=== PATIENT | female | born 1970 | race Two or more races ===

== ENCOUNTER 2024-04-07 11:16 | Emergency (ER) | payer MEDICARE, SELFPAY ==
[2024-04-07 11:19] VITALS: BMI 23.0
--- NOTE | 2024-04-07 11:22 | EKG_ITS ---
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
[2024-04-07 11:52] VITALS: BP 122/57; PULSE 81; RESP 18; TEMP 37; O2SAT 96
--- NOTE | 2024-04-07 11:58 | XR_ITS ---
Examination: PA lateral chest 2 views TECHNIQUE: Upright PA lateral chest 2 views Exam date and time: April 07, 2024 1217 hours INDICATIONS: Onset chest pain today. FINDINGS: Normal heart size The lungs are clear. The osseous structures are intact IMPRESSION: No active disease
--- NOTE | 2024-04-07 11:58 | EDRME_ITS ---
Rapid Medical Screening Exam PENDING SALE TO [facility] Arrival date/time: 04/07/24 11:16 53-year-old female presents to the emergency department with complaints of upper mid chest pain x 2 days. Does report pain is a burning sensation in the chest. I have greeted and performed a focused initial assessment of this patient. Initial appropriate labs ordered at this time. A comprehensive ED assessment and evaluation of the patient and analysis of all test and completion of medical decision making process will be conducted by additional ED provider. Chief Complaint: Chest Pain Time Seen by Provider: 04/07/24 11:56 Vital signs: Vital Signs Temperature 98.6 F 04/07/24 11:52 Pulse Rate 81 04/07/24 11:52 Respiratory Rate 18 04/07/24 11:52 Blood Pressure 122/57 L 04/07/24 11:52 Pulse Oximetry (%) 96 04/07/24 11:52 Oxygen Delivery Method Room Air 04/07/24 11:52
--- NOTE | 2024-04-07 11:58 | XR_ITS ---
Examination: Abdomen sonogram, Limited Date and time of exam: April 07, 2024 at 1225 hours INDICATIONS: Chest pain beginning 5 days ago Technique: Real-time martinez scale transabdominal sonographic images of the upper abdomen obtained. Findings: Normal gallbladder Normal common bile duct 0.3 cm Pancreatic head 1.7 cm Liver 12.9 cm fatty infiltration smooth contour no focal liver lesions Normal hepatopedal portal venous flow Patent IVC Technologist identifies internal echoes in the right ventricle, clinical correlation advised IMPRESSION: Normal gallbladder Technologist identifies internal echoes in the right ventricle, clinical correlation advised, consider echocardiography follow-up
[2024-04-07 13:03] LABS: Basophils # (Auto) 0.1 Thou/mm3 (0.0-0.2); Basophils % (Auto) 1 % (0-2.5); Eosinophils # (Auto) 0.1 Thou/mm3 (0.0-0.5); Eosinophils % (Auto) 1 % (0-10); Hematocrit 34.2 % (36.0-46.0); Hemoglobin 11.4 g/dL (12.0-16.0); Immature Granulocytes % (Auto) 0 % (0-0); Immature Granulocytes Auto 0.01 Thou/mm3 (0.00-0.00); Lymphocytes # (Auto) 2.8 Thou/mm3 (1.0-4.8); Lymphocytes % (Auto) 32 % (10-50); Mean Corpuscular HGB Conc 33.3 g/dl (31.0-37.0); Mean Corpuscular Hemoglobin 30.2 pg (25.0-35.0); Mean Corpuscular Volume 91 fL (80-100); Monocytes # (Auto) 0.6 Thou/mm3 (0.0-0.8); Monocytes % (Auto) 7 % (0-12); Neutrophils # (Auto) 5.1 Thou/mm3 (1.8-7.7); Neutrophils % (Auto) 59 % (37-80); Nucleated Red Blood Cell % 0 /100 WBC (0); Platelet Count 282 Thou/mm3 (140-440); RDW Standard Deviation 42.7 fL (36.4-46.3); Red Blood Count 3.77 Miln/mm3 (4.00-5.20); White Blood Count 8.6 Thou/mm3 (3.6-11.0)
[2024-04-07] MEDS: MG HYD/AL HYD/SIME (Maalox Reg) SUSP 30 ML UDC PO (13:13)
[2024-04-07] MEDS: LIDOCAINE VISCOUS 2% 15 ML UDC PO (13:14)
[2024-04-07 13:18] LABS: Prothrombin Time 10.5 Seconds (9.0-12.2)
[2024-04-07 13:21] LABS: B-Type Natriuretic Peptide 80 pg/mL (0-100)
[2024-04-07 13:23] LABS: Alanine Aminotransferase 19 U/L (10-49); Albumin, Serum 4.3 gm/dL (3.5-5.0); Albumin/Globulin Ratio 1.4 (1.2-2.2); Alkaline Phosphatase 76 U/L (46-116); Anion Gap 7 (7-16); Aspartate Amino Transferase 24 U/L (0-34); BUN/Creatinine Ratio 15 Ratio (12-20); Bilirubin,Total 0.4 mg/dL (0.3-1.2); Blood Urea Nitrogen 12 mg/dL (9-23); Calcium 9.8 mg/dL (8.3-10.6); Calcium (Corrected) 9.8 mg/dL (8.5-10.1); Carbon Dioxide 31.4 mMol/L (20.0-31.0); Chloride 101 mMol/L (98-107); Creatinine (Component) 0.8 mg/dL (0.6-1.3); Estimated Creatinine Clearance 68.8 mL/min (>60); Glucose 100 mg/dL (74-106); Lipase 36 U/L (12-53); Magnesium 1.8 mg/dL (1.6-2.6); Osmolality,Calculated 277 (275-295); Sodium 139 mMol/L (136-145); Total Protein 7.3 gm/dL (5.7-8.2); Troponin I < 0.002 ng/mL (0.0-0.045); eGFR > 60 See Note
[2024-04-07 14:40] VITALS: BP 131/86; PULSE 70; RESP 18; TEMP 37; O2SAT 98
[2024-04-07 18:40] VITALS: BP 123/66; PULSE 70; RESP 18; TEMP 36.8; O2SAT 99
--- NOTE | 2024-04-07 18:56 | XR_ITS ---
Examination: CTA chest with intravenous contrast 2-D reconstructions 3-D reconstructions, vascular Date and time of exam: April 2101 hrs. Indications: Onset chest pain shortness of breath beginning 6 days ago CTDI: vol (mGy) 6.34 DLP: (mGycm) 261 Technique: Multiple axial sections of the thorax have been obtained. 3 mm slice thickness, from below the hemidiaphragms to above the apices of the lungs. Mediastinal and lung density settings have been obtained. 2-D sagittal and coronal reconstructions. 3-D angiographic renderings, 3-D volume renderings, 3D post processing, vascular maximum intensity projections obtained. Contrast administered is 100 cc Isovue-370. Low dose protocols were performed. One or more of the following dose reduction techniques were used; automated exposure control, adjustment of the mA and/or KV according to patient size, use of iterative reconstruction technique. Findings: No thoracic aortic aneurysm dilatation or dissection Pulmonary artery segments are not enlarged. No pulmonary artery emboli No pneumonia or pulmonary edema or pleural disease Fatty infiltration throughout the liver with small liver cysts No definite gallstones Spleen not enlarged No pancreatic mass Kidneys partially visualized no hydronephrosis Abdominal aorta normal size Impression: No thoracic aortic aneurysm dilatation Negative for pulmonary artery emboli No mediastinal lymphadenopathy No pneumonia, pulmonary edema or pleural disease
--- NOTE | 2024-04-07 18:57 | EDNOTE_ITS ---
ED Chest Pain RME/HPI General Chief Complaint: Chest Pain Stated Complaint: CHEST PAIN SINCE WEDNESDAY Time Seen by Provider: 04/07/24 11:56 Arrival date/time: 04/07/24 11:16 RME / HPI RME / HPI narrative: 53-year-old female patient, came in for evaluation regarding substernal chest pain. Has been having 2 days of substernal chest pain, described as burning sensation, severity moderate. Patient denies any shortness of breath denies any diaphoresis denies any cyanosis. Denies any cough also. Denies any fever. No medication was taken prior to arrival. Related Data Previous Rx's ?Medication ?Instructions ?Recorded pantoprazole 40 mg tablet,delayed 40 mg PO QAM #20 tab s 04/07/24 release (Protonix) Allergies Allergy/AdvReac Type Severity Reaction Status Date / Time No Known Allergies Allergy Verified 04/07/24 11:18 Review of Systems Review of Systems Narrative Review of Systems: Review of system reviewed and within normal limits except mentioned in HPI ED Exam Narrative Physical exam: VITAL SIGNS: Reviewed. GENERAL APPEARANCE: Alert and interactive, follows commands, no acute distress, HEAD AND FACE: Non-traumatic. ENT: PERRL, pink conjunctivitis, eyelid no trauma, Mucous membrane moist. NECK: Supple, nontender, no nuchal rigidity. CHEST: No tenderness, no crepitus, no paradoxical movement, no retractions. LUNGS: Clear, well ventilated, symmetric, no rales, no wheezing, no ronchi, no stridor, good breath sounds bilaterally. HEART: Regular rate, regular rhythm, no murmur, no gallops. ABDOMEN: Soft, positive bowel sounds, nondistended, no guarding, nontender, no rebound, no masses, RECTAL: Deferred. GENITAL: Deferred. NEUROLOGICAL: Gross motor function intact sensory function intact, Appropriate for age. MUSCULOSKELETAL: low back nontender, full range of motion. EXTREMITIES: Nontender, full range of motion. SKIN: Color pink, dry, no rash, no lacerations, no abrasions, no contusions. LYMPHATICS: Deferred. Course Quality Measures none Orders Category Date Time Status CT Screening NOW Care 04/07/24 18:56 Active EKG (ED ONLY) *Do not use* NOW Care 04/07/24 11:22 Completed Insert IV NOW Care 04/07/24 19:[address] angio chest Stat Exams 04/07/24 18:56 Completed EKG (ED Only) Stat Exams 04/07/24 11:22 Draft US gall bladder Stat Exams 04/07/24 11:58 Completed XR chest 2V Stat Exams 04/07/24 11:58 Completed B-Type Natriuretic Peptide Stat Lab 04/07/24 12:45 Completed CBC Stat Lab 04/07/24 12:45 Completed Comprehensive Metabolic Panel Stat Lab 04/07/24 12:45 Completed Lipase Stat Lab 04/07/24 12:45 Completed Magnesium Stat Lab 04/07/24 12:45 Completed Prothrombin Time with INR Stat Lab 04/07/24 12:45 Completed Troponin I Stat Lab 04/07/24 12:45 Completed Famotidine Inj [Pepcid Inj] Med 04/07/24 18:56 Discontinued 20 mg IVP X1 ONE Lidocaine 2% Viscous [Xylocaine 2% Viscous] Med 04/07/24 11:58 Discontinued 15 ml PO X1 ONE mg Hyd/Al Hyd/Sierra Susp [Maalox Susp] Med 04/07/24 11:58 Discontinued 30 ml PO X1 ONE Vital Signs Vital signs: Vital Signs Temperature 98.6 F 04/07/24 11:52 Pulse Rate 81 04/07/24 11:52 Respiratory Rate 18 04/07/24 11:52 Blood Pressure 122/57 L 04/07/24 11:52 Pulse Oximetry (%) 96 04/07/24 11:52 Oxygen Delivery Method Room Air 04/07/24 11:52 Chest Pain MDM Narrative MDM Narrative:: 53-year-old female patient, came in for evaluation regarding substernal chest pain. Has been having 2 days of substernal chest pain, described as burning sensation, severity moderate. Patient denies any shortness of breath denies any diaphoresis denies any cyanosis. Denies any cough also. Denies any fever. No medication was taken prior to arrival. Patient's cardiac workup today came back unremarkable troponin is normal. EKG showed sinus rhythm, ventricular rate of 70 bpm, no ST segment elevation depression noted. Ultrasound of the gallbladder showed no acute pathology however there is possible debris noted on the right ventricle. I did CT a ngiogram of the chest and it came back unremarkable. Results discussed with the patient. Patient appears nontoxic and hemodynamically stable. Patient discharged home and instructed to follow-up with primary care provider in 24 to 48 hours. Instructed to return to the emergency department immediately if worsening of symptoms Patient data External records reviewed:: None Clinical information provided by:: none Social determinants that could affect healthcare access:: none Patient has the following chronic illnesses:: None How is presenting disease/condition affected by chronic disease/condition?: no chronic disease Evaluation data The following diagnostics were reviewed and interpreted by me:: lab results, radiology exam(s) and EKG tracing(s) Lab and/or radiology exams considered but not ordered:: None Interpretation Summary: See results in MDM Medications / Prescriptions Medications or Prescriptions considered but not ordered:: None Medication administrations:: Medication Administration History Discontinued Medications Al Hydrox/Mg Hydrox/Simethicone (Mg Hyd/Al Hyd/Sierra (Maalox Reg) Susp 30 Ml Udc) 30 ml PO X1 ONE Stop: 04/07/24 11:59 Last Admin: 04/07/24 13:13 Dose: 30 ml Documented By: DUGLAS Famotidine (Famotidine Inj 10 Mg/Ml Vial 2 Ml) 20 mg IVP X1 ONE Stop: 04/07/24 18:57 Last Admin: 04/07/24 19:33 Dose: 20 mg Documented By: MP Lidocaine HCl (Lidocaine Viscous 2% 15 Ml Udc) 15 ml PO X1 ONE Stop: 04/07/24 11:59 Last Admin: 04/07/24 13:14 Dose: 15 ml Documented By: DUGLAS Pepcid and Maalox Consultations Consultation(s) initiated? (list below): No Consultation #1 (Physician, Specialty, Details): None Diagnosis Chest Pain Differential Diagnosis: pneumothorax and chest pain Most likely diagnosis given after review of the tests above:: Chest pain, probably secondary to GERD Admission Indicated Admission indicated?: not indicated Explain why admission is indicated or not indicated:: Stable Admission Request Was there a request for admission?: No Disposition Plan Disposition Plan: Discharge Discharge Attestation Discharge Attestation: The patient and all family members were given an opportunity to ask questions and understood the discharge instructions. Discharge instructions specifically effects, indications for sooner follow up or return to the emergency department, and the expected course of current diagnosis. Patient condition: Stable Discharge Plan Plan Patient Disposition: HOME (Self Care) Disposition Comment: Stable Prescriptions/Referrals Prescriptions/Med Rec: New pantoprazole [Protonix] 40 mg tablet,delayed release (DR/EC) 40 mg PO QAM Qty: 20 0RF Referrals: No Primary/Family,Physician [Primary Care Provider] - In 1 week Problem List Clinical Impression: Chest pain Patient/Caregiver Discharge Instructions Discharge Activity: activity as tolerated Education Materials: ED Chest Pain, Noncardiac Additional Instructions: Thank you for the opportunity for serving you today. You are stable for discharged . 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
[2024-04-07] MEDS: FAMOTIDINE INJ 10 MG/ML VIAL 2 ML 20 MG IVP (19:33)
[2024-04-07 21:13] VITALS: BP 125/76; PULSE 80; RESP 19; O2SAT 97
== END 2024-04-07 22:38 | disposition home or self-care (01) ==
PROVIDERS: Nurse Practitioner Primary Care; Emergency Provider Emergency Medicine
DX: R07.2 Precordial pain (principal)
CPT/HCPCS: 36415; 71046; 71275; 76705; 80053; 83690; 83735; 83880; 84484; 85025; 85610; 93005; 96374; 99285; A4649; J3490; Q9967; A9270